=== PATIENT | male | born 1945 | race Two or more races ===

== ENCOUNTER 2019-11-26 14:27 | Inpatient (IN) | payer MEDICARE ==
[~2019-11-26] VITALS: Ht 152.4 cm; Wt 81.6 kg
[2019-11-26] MEDS ORDERED: ACETAMINOPHEN 650MG SUPP PR STA (14:52)
[2019-11-26] MEDS ORDERED: VANCOMYCIN 1 G PREMIX 200 ML IV ONE (15:00)
[2019-11-26] MEDS ORDERED: SODIUM CHLORIDE 0.9% 1000ML BAG (SEPSIS BOLUS) IV ONE (15:00)
[2019-11-26] MEDS ORDERED: PIPERACILLIN/TAZ 3.375G PREMIX 50 ML IV ONE (15:00)
[2019-11-26] MEDS ORDERED: ETOMIDATE 2MG/ML 10ML VIAL IV ONE (15:21)
[2019-11-26 15:25] LABS: BASOPHILS % 0.6 % (0.0-2.0); EOSINOPHILS % 0.1 % (0.0-5.0); HEMATOCRIT. 35.7 % (42.0-52.0); LYMPHOCYTES % 8.7 % (20.0-50.0); MEAN CORPUSCULAR HEMOGLOBIN 32.7 pg (28.0-32.0); MEAN CORPUSCULAR VOLUME 97.4 fL (80.0-94.0); MONOCYTES % 10.9 % (2.0-8.0); NEUTROPHILS % 79.7 % (40.0-76.0); PLATELET 161 x1000/uL (130-400); RED BLOOD CELL COUNT 3.66 mill/uL (4.7-6.1); RED CELL DISTRIBUTION WIDTH 15.9 % (11.6-14.6)
[2019-11-26 15:27] LABS: CHLORIDE 113 mEq/L (98-107)
[2019-11-26] MEDS ORDERED: PROPOFOL 10MG/ML 100ML 100 ML IV ONE (15:30)
[2019-11-26 15:56] LABS: CLARITY URINE CLOUDY (CLEAR); COLOR URINE DARK YELLOW (YELLOW); KETONES URINE 1+ (NEGATIVE); LEUKOCYTE ESTERASE URINE TRACE (NEGATIVE); NITRITE URINE NEGATIVE (NEGATIVE); OCCULT BLOOD URINE TRACE (NEGATIVE); PH URINE 5.5 (4.5-8.0); PROTEIN URINE 1+ (NEGATIVE); SPECIFIC GRAVITY URINE 1.032 (1.005-1.030)
[2019-11-26 16:27] LABS: BG BASE EXCESS -0.5 mmol/L (-2.0-2.0); BG CARBOXYHEMOGLOBIN 0.3 % (0.5-1.5); BG DEOXYHEMOGLOBIN 0.6 % (0.0-5.0); BG FRACTION INSPIRED OXYGEN 100; BG HCO3 ACT 24.2 mmol/L (22.0-26.0); BG METHEMOGLOBIN 0.2 % (0.0-1.5); BG OXYGEN SATURATION 99.4 % (92.0-98.5); BG OXYHEMOGLOBIN 98.9 % (94.0-97.0); BG PCO2 39.9 mmHg (35.0-45.0); BG PO2 391.6 mmHg (75.0-100.0); BG SAMPLE SITE RIGHT RADIAL; BG TIDAL VOLUME(mL) 500 mL; BG TOTAL HEMOGLOBIN 11.4 g/dL (12.0-18.0); BG VENT MODE VENT - A/C; BG VENT RATE 14 set
[2019-11-26] MEDS ORDERED: ONDANSETRON HCL 4MG/2ML INJ IV PRN (18:30)
[2019-11-26] MEDS ORDERED: ACETAMINOPHEN 325MG TABLET PO PRN (18:30)
[2019-11-26] MEDS ORDERED: PIPERACILLIN/TAZ 3.375G PREMIX 50 ML IV SCH ×2 (18:30→21:30)
[2019-11-26] MEDS ORDERED: MORPHINE SULFATE 2 MG/ML CPJ (NOT FOR IM USE) IV PRN (18:30)
[2019-11-26] MEDS ORDERED: LORAZEPAM 2MG/ML CPJ IV PRN (18:30)
[2019-11-26] MEDS: PANTOPRAZOLE SODIUM 40 MG/VIAL IV SCH (19:06)
[2019-11-26] MEDS ORDERED: ENOXAPARIN 40MG/0.4ML SYR SUBCUT SCH (21:00)
[2019-11-26] MEDS: DEXT 5%/0.45% NACL 1000ML 1,000 ML IV SCH (22:00)
[2019-11-26] MEDS ORDERED: VANCOMYCIN 1 G PREMIX 200 ML IV SCH (23:00)
[2019-11-27] VITALS (74 sets, daily range): BP systolic 104–168; BP diastolic 54–124
[2019-11-27] MEDS ORDERED: VANCOMYCIN 1 G PREMIX 200 ML IV SCH (01:00)
[2019-11-27] MEDS ORDERED: PROPOFOL 10MG/ML 100ML 100 ML IV PRN ×2 (01:15→20:15)
[2019-11-27] MEDS: DEXT 5%/0.45% NACL 1000ML 1,000 ML IV SCH (02:27)
[2019-11-27 02:34] LABS: BG CARBOXYHEMOGLOBIN 0.3 % (0.5-1.5); BG DEOXYHEMOGLOBIN 0.4 % (0.0-5.0); BG FRACTION INSPIRED OXYGEN 100; BG HCO3 ACT 26.2 mmol/L (22.0-26.0); BG METHEMOGLOBIN 0.4 % (0.0-1.5); BG OXYGEN SATURATION 99.6 % (92.0-98.5); BG OXYHEMOGLOBIN 98.9 % (94.0-97.0); BG PCO2 39.5 mmHg (35.0-45.0); BG PO2 437.6 mmHg (75.0-100.0); BG SAMPLE SITE RIGHT RADIAL; BG TIDAL VOLUME(mL) 500 mL; BG TOTAL HEMOGLOBIN 13.3 g/dL (12.0-18.0); BG VENT MODE VENT - A/C; BG VENT RATE 14 set
[2019-11-27] MEDS: PROPOFOL 10MG/ML 100ML 100 ML IV PRN ×3 (03:15→15:18)
[2019-11-27] MEDS ORDERED: DEXTROSE 50% WATER 50ML SYRINGE IV PRN (04:15)
[2019-11-27 05:23] LABS: BASOPHILS % 0.6 % (0.0-2.0); CHLORIDE 111 mEq/L (98-107); EOSINOPHILS % 0.4 % (0.0-5.0); HEMATOCRIT. 33.7 % (42.0-52.0); LYMPHOCYTES % 11.1 % (20.0-50.0); MEAN CORPUSCULAR HEMOGLOBIN 32.3 pg (28.0-32.0); MEAN CORPUSCULAR VOLUME 98.5 fL (80.0-94.0); MONOCYTES % 8.7 % (2.0-8.0); NEUTROPHILS % 79.2 % (40.0-76.0); PLATELET 138 x1000/uL (130-400); RED BLOOD CELL COUNT 3.42 mill/uL (4.7-6.1); RED CELL DISTRIBUTION WIDTH 15.8 % (11.6-14.6)
[2019-11-27] MEDS: PIPERACILLIN/TAZOBACTAM 3.375 G in DEXT 5% WATER 100 ML IV SCH ×3 (06:10→18:50)
[2019-11-27] MEDS: INSULIN LISPRO 100 UNITS/ML SUBCUT SCH ×3 (06:10→17:55)
[2019-11-27] MEDS: BLOOD SUGAR DIAGNOSTIC STRIP TEST SCH ×3 (06:11→16:56)
[2019-11-27 08:52] LABS: BG BASE EXCESS -1.7 mmol/L (-2.0-2.0); BG CARBOXYHEMOGLOBIN 0.3 % (0.5-1.5); BG DEOXYHEMOGLOBIN 1.8 % (0.0-5.0); BG HCO3 ACT 22.1 mmol/L (22.0-26.0); BG METHEMOGLOBIN 0.3 % (0.0-1.5); BG OXYGEN SATURATION 98.2 % (92.0-98.5); BG OXYHEMOGLOBIN 97.6 % (94.0-97.0); BG PCO2 34.1 mmHg (35.0-45.0); BG PO2 120.2 mmHg (75.0-100.0); BG SAMPLE SITE RIGHT RADIAL; BG TIDAL VOLUME(mL) 500 mL; BG TOTAL HEMOGLOBIN 10.8 g/dL (12.0-18.0); BG VENT MODE VENT - A/C; BG VENT RATE 14 set
[2019-11-27] MEDS ORDERED: LIDOCAINE HCL 1% 20ML VIAL (Pyxis) INJ ONE (09:05)
[2019-11-27] MEDS: PANTOPRAZOLE SODIUM 40 MG/VIAL IV SCH (09:34)
[2019-11-27] MEDS: NICARDIPINE 100 MG in SODIUM CHLORIDE 0.9% 60 ML IV PRN (20:45)
[2019-11-27] MEDS: VANCOMYCIN 750 MG PREMIX 150 ML IV SCH (20:58)
[2019-11-27] MEDS: LEVETIRACETAM 500MG PREMIX 100 ML IV SCH (20:58)
[2019-11-27] MEDS: MORPHINE SULFATE 4 MG/ML CPJ (NOT FOR IM USE) IV PRN (21:14)
[2019-11-28] VITALS (97 sets, daily range): BP systolic 105–153; BP diastolic 55–115
[2019-11-28] MEDS: PIPERACILLIN/TAZOBACTAM 3.375 G in DEXT 5% WATER 100 ML IV SCH ×4 (00:33→17:07)
[2019-11-28] MEDS: DEXT 5%/0.45% NACL 1000ML 1,000 ML IV SCH ×2 (00:34→20:24)
[2019-11-28] MEDS: BLOOD SUGAR DIAGNOSTIC STRIP TEST SCH ×4 (00:50→17:11)
[2019-11-28] MEDS: INSULIN LISPRO 100 UNITS/ML SUBCUT SCH ×4 (00:50→17:09)
[2019-11-28] MEDS: MORPHINE SULFATE 4 MG/ML CPJ (NOT FOR IM USE) IV PRN ×4 (01:00→13:40)
[2019-11-28] MEDS: PANTOPRAZOLE SODIUM 40 MG/VIAL IV SCH (08:18)
[2019-11-28] MEDS: LEVETIRACETAM 500MG PREMIX 100 ML IV SCH ×2 (08:19→22:04)
[2019-11-28] MEDS: VANCOMYCIN 750 MG PREMIX 150 ML IV SCH ×2 (08:19→22:05)
[2019-11-28 09:00] LABS: BG BASE EXCESS 2.4 mmol/L (-2.0-2.0); BG CARBOXYHEMOGLOBIN 0.2 % (0.5-1.5); BG DEOXYHEMOGLOBIN 1.6 % (0.0-5.0); BG FRACTION INSPIRED OXYGEN 40; BG HCO3 ACT 25.4 mmol/L (22.0-26.0); BG METHEMOGLOBIN 0.6 % (0.0-1.5); BG OXYGEN SATURATION 98.4 % (92.0-98.5); BG OXYHEMOGLOBIN 97.6 % (94.0-97.0); BG PCO2 33.2 mmHg (35.0-45.0); BG PH 7.502 (7.350-7.450); BG SAMPLE SITE RIGHT RADIAL; BG TIDAL VOLUME(mL) 500 mL; BG TOTAL HEMOGLOBIN 9.7 g/dL (12.0-18.0); BG VENT MODE VENT - A/C; BG VENT RATE 14 set
[2019-11-28 13:41] LABS: BG BASE EXCESS 3.3 mmol/L (-2.0-2.0); BG CARBOXYHEMOGLOBIN 0.3 % (0.5-1.5); BG DEOXYHEMOGLOBIN 2.2 % (0.0-5.0); BG FRACTION INSPIRED OXYGEN 40; BG HCO3 ACT 26.8 mmol/L (22.0-26.0); BG METHEMOGLOBIN 0.2 % (0.0-1.5); BG OXYGEN SATURATION 97.8 % (92.0-98.5); BG OXYHEMOGLOBIN 97.3 % (94.0-97.0); BG PCO2 36.7 mmHg (35.0-45.0); BG PH 7.482 (7.350-7.450); BG PO2 108.8 mmHg (75.0-100.0); BG PRESSURE SUPPORT 8; BG SAMPLE SITE RIGHT RADIAL; BG TOTAL HEMOGLOBIN 9.7 g/dL (12.0-18.0); BG VENT MODE VENT - CPAP
[2019-11-28] MEDS: NICARDIPINE 100 MG in SODIUM CHLORIDE 0.9% 60 ML IV PRN (13:44)
[2019-11-29] VITALS (54 sets, daily range): BP systolic 103–166; BP diastolic 44–116
[2019-11-29] MEDS: PIPERACILLIN/TAZOBACTAM 3.375 G in DEXT 5% WATER 100 ML IV SCH ×4 (01:23→18:00)
[2019-11-29] MEDS: INSULIN LISPRO 100 UNITS/ML SUBCUT SCH ×4 (01:23→18:13)
[2019-11-29] MEDS: MORPHINE SULFATE 4 MG/ML CPJ (NOT FOR IM USE) IV PRN ×3 (02:58→03:34)
[2019-11-29 05:58] LABS: CHLORIDE 110 mEq/L (98-107)
[2019-11-29] MEDS: BLOOD SUGAR DIAGNOSTIC STRIP TEST SCH ×4 (06:42→18:00)
[2019-11-29] MEDS: PANTOPRAZOLE SODIUM 40 MG/VIAL IV SCH (08:26)
[2019-11-29] MEDS: VANCOMYCIN 750 MG PREMIX 150 ML IV SCH (08:26)
[2019-11-29] MEDS: LEVETIRACETAM 500MG PREMIX 100 ML IV SCH ×2 (08:26→21:16)
[2019-11-29] MEDS: NICARDIPINE 100 MG in SODIUM CHLORIDE 0.9% 60 ML IV PRN (08:27)
[2019-11-29] MEDS ORDERED: POTASSIUM CHLORIDE INJ 40 MEQ in DEXT 5% WATER 250 ML IV SCH (12:00)
[2019-11-29] MEDS: DEXT 5%/0.45% NACL 1000ML 1,000 ML IV SCH (12:13)
[2019-11-29] MEDS: VANCOMYCIN 1 G PREMIX 200 ML IV SCH (20:18)
[2019-11-30] VITALS (12 sets, daily range): BP systolic 135–158; BP diastolic 71–97
[2019-11-30] MEDS: BLOOD SUGAR DIAGNOSTIC STRIP TEST SCH ×4 (00:54→18:31)
[2019-11-30] MEDS: PIPERACILLIN/TAZOBACTAM 3.375 G in DEXT 5% WATER 100 ML IV SCH ×4 (00:58→18:34)
[2019-11-30] MEDS: DEXT 5%/0.45% NACL 1000ML 1,000 ML IV SCH ×2 (00:59→21:29)
[2019-11-30] MEDS: INSULIN LISPRO 100 UNITS/ML SUBCUT SCH ×5 (01:00→18:00)
[2019-11-30 07:24] LABS: CHLORIDE 105 mEq/L (98-107)
[2019-11-30] MEDS: VANCOMYCIN 1 G PREMIX 200 ML IV SCH ×2 (07:49→20:14)
[2019-11-30] MEDS: LEVETIRACETAM 500MG PREMIX 100 ML IV SCH ×2 (10:11→21:29)
[2019-11-30] MEDS ORDERED: POTASSIUM CHLORIDE INJ 40 MEQ in DEXT 5% WATER 250 ML IV SCH (13:00)
[2019-11-30] MEDS: PANTOPRAZOLE SODIUM 40 MG/VIAL IV SCH (17:15)
[2019-11-30] MEDS: MORPHINE SULFATE 4 MG/ML CPJ (NOT FOR IM USE) IV PRN (22:50)
[2019-12-01] VITALS (12 sets, daily range): BP systolic 121–179; BP diastolic 53–89
[2019-12-01] MEDS: INSULIN LISPRO 100 UNITS/ML SUBCUT SCH ×4 (00:47→17:28)
[2019-12-01] MEDS: PIPERACILLIN/TAZOBACTAM 3.375 G in DEXT 5% WATER 100 ML IV SCH ×4 (00:47→17:26)
[2019-12-01] MEDS: BLOOD SUGAR DIAGNOSTIC STRIP TEST SCH ×5 (00:47→23:58)
[2019-12-01 06:40] LABS: BASOPHILS % 1.2 % (0.0-2.0); EOSINOPHILS % 3.5 % (0.0-5.0); HEMATOCRIT. 38.2 % (42.0-52.0); HEMOGLOBIN. 12.4 g/dL (14.0-18.0); LYMPHOCYTES % 15.7 % (20.0-50.0); MEAN CORPUSCULAR HEMOGLOBIN 31.3 pg (28.0-32.0); MEAN CORPUSCULAR VOLUME 96.3 fL (80.0-94.0); MEAN PLATELET VOLUME 9.4 fl (7.4-10.4); MONOCYTES % 13.3 % (2.0-8.0); NEUTROPHILS % 66.3 % (40.0-76.0); PLATELET 219 x1000/uL (130-400); RED BLOOD CELL COUNT 3.96 mill/uL (4.7-6.1); RED CELL DISTRIBUTION WIDTH 14.9 % (11.6-14.6)
[2019-12-01 07:00] LABS: CHLORIDE 107 mEq/L (98-107)
[2019-12-01] MEDS: PANTOPRAZOLE SODIUM 40 MG/VIAL IV SCH (09:32)
[2019-12-01] MEDS: LEVETIRACETAM 500MG PREMIX 100 ML IV SCH ×2 (09:40→20:21)
[2019-12-01] MEDS: VANCOMYCIN 1 G PREMIX 200 ML IV SCH ×2 (10:21→20:21)
[2019-12-01] MEDS: POTASSIUM CHLORIDE 20MEQ TABLET SR PO SCH (13:00)
[2019-12-01] MEDS: DEXT 5%/0.45% NACL 1000ML 1,000 ML IV SCH (15:04)
[2019-12-02] VITALS (12 sets, daily range): BP systolic 142–159; BP diastolic 63–85
[2019-12-02] MEDS: INSULIN LISPRO 100 UNITS/ML SUBCUT SCH ×5 (00:02→23:57)
[2019-12-02] MEDS: DEXT 5%/0.45% NACL 1000ML 1,000 ML IV SCH (05:57)
[2019-12-02] MEDS: BLOOD SUGAR DIAGNOSTIC STRIP TEST SCH ×3 (05:57→17:08)
[2019-12-02] MEDS: PANTOPRAZOLE SODIUM 40 MG/VIAL IV SCH (09:05)
[2019-12-02] MEDS: POTASSIUM CHLORIDE 20MEQ TABLET SR PO SCH (09:05)
[2019-12-02] MEDS: LEVETIRACETAM 500MG PREMIX 100 ML IV SCH ×2 (09:06→20:45)
[2019-12-02 16:39] LABS: CHLORIDE 111 mEq/L (98-107)
[2019-12-02] MEDS ORDERED: POTASSIUM CHLORIDE INJ 40 MEQ in DEXT 5% WATER 250 ML IV NR (20:00)
[2019-12-03] VITALS (13 sets, daily range): BP systolic 137–161; BP diastolic 60–88
[2019-12-03] MEDS: BLOOD SUGAR DIAGNOSTIC STRIP TEST SCH ×5 (00:37→23:52)
[2019-12-03] MEDS: DEXT 5%/0.45% NACL 1000ML 1,000 ML IV SCH (04:36)
[2019-12-03] MEDS: INSULIN LISPRO 100 UNITS/ML SUBCUT SCH ×4 (05:32→23:52)
[2019-12-03] MEDS: POTASSIUM CHLORIDE 20MEQ TABLET SR PO SCH (08:28)
[2019-12-03] MEDS: LEVETIRACETAM 500MG PREMIX 100 ML IV SCH ×2 (08:28→20:19)
[2019-12-03] MEDS: PANTOPRAZOLE SODIUM 40 MG/VIAL IV SCH (08:28)
[2019-12-03 16:49] LABS: CHLORIDE 112 mEq/L (98-107)
[2019-12-03] MEDS: AMLODIPINE 5MG TABLET PO SCH (20:20)
[2019-12-04] VITALS (11 sets, daily range): BP systolic 124–151; BP diastolic 50–73
[2019-12-04] MEDS: BLOOD SUGAR DIAGNOSTIC STRIP TEST SCH ×4 (05:20→21:43)
[2019-12-04] MEDS: INSULIN LISPRO 100 UNITS/ML SUBCUT SCH ×4 (05:20→21:43)
[2019-12-04] MEDS: PANTOPRAZOLE SODIUM 40 MG/VIAL IV SCH (08:23)
[2019-12-04] MEDS: AMLODIPINE 5MG TABLET PO SCH ×2 (08:23→21:00)
[2019-12-04] MEDS: LEVETIRACETAM 500MG PREMIX 100 ML IV SCH ×2 (08:24→21:39)
[2019-12-04] MEDS: POTASSIUM CHLORIDE 20MEQ TABLET SR PO SCH (08:24)
[2019-12-05] VITALS: BP_SYST 145; BP_SYST 156; BP_DIAS 71; BP_DIAS 73
[2019-12-05 04:00] VITALS: BP 162/73
[2019-12-05] MEDS: INSULIN LISPRO 100 UNITS/ML SUBCUT SCH ×4 (06:22→20:59)
[2019-12-05] MEDS: BLOOD SUGAR DIAGNOSTIC STRIP TEST SCH ×4 (06:22→20:59)
[2019-12-05 08:00] VITALS: BP 134/63
[2019-12-05] MEDS: AMLODIPINE 5MG TABLET PO SCH ×2 (09:48→20:51)
[2019-12-05] MEDS: PANTOPRAZOLE SODIUM 40 MG/VIAL IV SCH (09:48)
[2019-12-05] MEDS: POTASSIUM CHLORIDE 20MEQ TABLET SR PO SCH (09:48)
[2019-12-05 12:00] VITALS: BP 147/70
[2019-12-05] MEDS: LEVETIRACETAM 500MG PREMIX 100 ML IV SCH ×2 (12:15→20:52)
[2019-12-05 16:00] VITALS: BP 137/68
[2019-12-05 20:00] VITALS: BP 125/77
[2019-12-06] VITALS: BP_SYST 155; BP_DIAS 67; BP_DIAS 74
[2019-12-06 04:00] VITALS: BP 153/153
[2019-12-06] MEDS: BLOOD SUGAR DIAGNOSTIC STRIP TEST SCH ×4 (07:19→21:56)
[2019-12-06] MEDS: INSULIN LISPRO 100 UNITS/ML SUBCUT SCH ×4 (07:46→22:23)
[2019-12-06 08:00] VITALS: BP 156/71
[2019-12-06] MEDS: POTASSIUM CHLORIDE 20MEQ TABLET SR PO SCH (08:52)
[2019-12-06] MEDS: LEVETIRACETAM 500MG PREMIX 100 ML IV SCH ×2 (08:52→21:56)
[2019-12-06] MEDS: PANTOPRAZOLE SODIUM 40 MG/VIAL IV SCH (08:52)
[2019-12-06] MEDS: AMLODIPINE 5MG TABLET PO SCH ×2 (08:53→21:56)
[2019-12-06 11:51] LABS: VITAMIN B12 SERUM 698 pg/mL (211-911)
[2019-12-06 12:00] VITALS: BP 126/55
[2019-12-06 16:00] VITALS: BP 145/69
[2019-12-06] MEDS ORDERED: LORAZEPAM 2MG/ML CPJ IV PRN (19:45)
[2019-12-06 20:00] VITALS: BP 140/71
[2019-12-07 04:00] VITALS: BP 153/67
[2019-12-07] MEDS: BLOOD SUGAR DIAGNOSTIC STRIP TEST SCH ×4 (06:10→20:42)
[2019-12-07] MEDS: INSULIN LISPRO 100 UNITS/ML SUBCUT SCH ×4 (06:10→20:58)
[2019-12-07 08:00] VITALS: BP 140/66
[2019-12-07] MEDS: POTASSIUM CHLORIDE 20MEQ TABLET SR PO SCH (08:16)
[2019-12-07] MEDS: LEVETIRACETAM 500MG PREMIX 100 ML IV SCH ×2 (08:16→20:42)
[2019-12-07] MEDS: PANTOPRAZOLE SODIUM 40 MG/VIAL IV SCH (08:16)
[2019-12-07] MEDS: AMLODIPINE 5MG TABLET PO SCH ×2 (08:18→20:42)
[2019-12-07 12:00] VITALS: BP 140/66
[2019-12-07 16:00] VITALS: BP 156/65
[2019-12-07 20:00] VITALS: BP 103/75
[2019-12-07] MEDS: QUETIAPINE FUMARATE 25MG TABLET PO SCH (20:42)
[2019-12-08] VITALS: BP 147/80
[2019-12-08] MEDS: INSULIN LISPRO 100 UNITS/ML SUBCUT SCH ×4 (07:50→20:50)
[2019-12-08] MEDS: BLOOD SUGAR DIAGNOSTIC STRIP TEST SCH ×4 (07:51→20:50)
[2019-12-08 08:00] VITALS: BP 172/74
[2019-12-08] MEDS: POTASSIUM CHLORIDE 20MEQ TABLET SR PO SCH (09:54)
[2019-12-08] MEDS: LEVETIRACETAM 500MG PREMIX 100 ML IV SCH (09:55)
[2019-12-08] MEDS: QUETIAPINE FUMARATE 25MG TABLET PO SCH (09:55)
[2019-12-08] MEDS: PANTOPRAZOLE SODIUM 40 MG/VIAL IV SCH (09:57)
[2019-12-08] MEDS: AMLODIPINE 5MG TABLET PO SCH ×2 (10:48→20:49)
[2019-12-08 12:00] VITALS: BP 115/61
[2019-12-08 16:00] VITALS: BP 165/73
[2019-12-08 20:00] VITALS: BP 123/63
[2019-12-08] MEDS: LEVETIRACETAM 250MG TABLET PO SCH (20:49)
[2019-12-08] MEDS: QUETIAPINE FUMARATE 50MG TABLET PO SCH (20:50)
[2019-12-09] VITALS: BP 135/73
[2019-12-09 04:00] VITALS: BP 142/71
[2019-12-09] MEDS: BLOOD SUGAR DIAGNOSTIC STRIP TEST SCH ×4 (06:23→21:34)
[2019-12-09] MEDS: INSULIN LISPRO 100 UNITS/ML SUBCUT SCH ×4 (07:50→21:00)
[2019-12-09 08:00] VITALS: BP 133/73
[2019-12-09] MEDS: QUETIAPINE FUMARATE 50MG TABLET PO SCH ×2 (10:02→21:53)
[2019-12-09] MEDS: POTASSIUM CHLORIDE 20MEQ TABLET SR PO SCH (10:02)
[2019-12-09] MEDS: PANTOPRAZOLE SODIUM 40 MG/VIAL IV SCH (10:02)
[2019-12-09] MEDS: LEVETIRACETAM 250MG TABLET PO SCH ×2 (10:02→21:53)
[2019-12-09] MEDS: AMLODIPINE 5MG TABLET PO SCH ×2 (10:02→21:53)
[2019-12-09 16:00] VITALS: BP 137/73
[2019-12-09 20:00] VITALS: BP 117/61
[2019-12-10] VITALS: BP 149/85
[2019-12-10 04:00] VITALS: BP 133/84
[2019-12-10] MEDS: BLOOD SUGAR DIAGNOSTIC STRIP TEST SCH ×4 (06:24→20:52)
[2019-12-10] MEDS: INSULIN LISPRO 100 UNITS/ML SUBCUT SCH ×4 (07:46→20:52)
[2019-12-10 08:00] VITALS: BP 131/73
[2019-12-10] MEDS: LEVETIRACETAM 250MG TABLET PO SCH ×2 (08:48→20:31)
[2019-12-10] MEDS: POTASSIUM CHLORIDE 20MEQ TABLET SR PO SCH (08:48)
[2019-12-10] MEDS: PANTOPRAZOLE SODIUM 40 MG/VIAL IV SCH (08:48)
[2019-12-10] MEDS: QUETIAPINE FUMARATE 50MG TABLET PO SCH ×2 (08:48→20:31)
[2019-12-10] MEDS: AMLODIPINE 5MG TABLET PO SCH ×2 (08:48→20:31)
[2019-12-11] VITALS: BP 124/88
[2019-12-11] MEDS: BLOOD SUGAR DIAGNOSTIC STRIP TEST SCH ×4 (06:45→21:00)
[2019-12-11] MEDS: INSULIN LISPRO 100 UNITS/ML SUBCUT SCH ×4 (07:50→21:00)
[2019-12-11] MEDS: LEVETIRACETAM 250MG TABLET PO SCH ×2 (09:00→21:16)
[2019-12-11] MEDS: PANTOPRAZOLE SODIUM 40 MG/VIAL IV SCH (09:00)
[2019-12-11] MEDS: QUETIAPINE FUMARATE 50MG TABLET PO SCH ×2 (10:16→21:16)
[2019-12-11] MEDS: POTASSIUM CHLORIDE 20MEQ TABLET SR PO SCH (10:16)
[2019-12-11] MEDS: AMLODIPINE 5MG TABLET PO SCH ×2 (10:17→21:17)
[2019-12-11 12:00] VITALS: BP 157/75
[2019-12-11] MEDS: HALOPERIDOL LACTATE 5MG/ML VIAL IM PRN ×2 (15:02→23:27)
[2019-12-11 16:00] VITALS: BP 136/74
[2019-12-11 20:00] VITALS: BP 144/69
[2019-12-12] VITALS (7 sets, daily range): BP systolic 120–149; BP diastolic 69–80
[2019-12-12] MEDS: BLOOD SUGAR DIAGNOSTIC STRIP TEST SCH ×4 (06:27→20:55)
[2019-12-12] MEDS: INSULIN LISPRO 100 UNITS/ML SUBCUT SCH ×4 (06:27→21:08)
[2019-12-12] MEDS: QUETIAPINE FUMARATE 50MG TABLET PO SCH (08:27)
[2019-12-12] MEDS: LEVETIRACETAM 250MG TABLET PO SCH ×2 (08:27→20:50)
[2019-12-12] MEDS: AMLODIPINE 5MG TABLET PO SCH ×2 (08:27→20:50)
[2019-12-12] MEDS: POTASSIUM CHLORIDE 20MEQ TABLET SR PO SCH (08:28)
[2019-12-12] MEDS: PANTOPRAZOLE SODIUM 40 MG/VIAL IV SCH (08:28)
[2019-12-12] MEDS: HALOPERIDOL LACTATE 5MG/ML VIAL IM PRN ×2 (08:28→16:45)
[2019-12-12] MEDS: QUETIAPINE FUMARATE 25MG TABLET PO SCH (21:07)
[2019-12-13] MEDS: HALOPERIDOL LACTATE 5MG/ML VIAL IM PRN ×2 (03:01→12:55)
[2019-12-13] MEDS: INSULIN LISPRO 100 UNITS/ML SUBCUT SCH ×4 (07:19→21:00)
[2019-12-13] MEDS: BLOOD SUGAR DIAGNOSTIC STRIP TEST SCH ×4 (07:19→21:00)
[2019-12-13 08:00] VITALS: BP 128/59
[2019-12-13] MEDS: PANTOPRAZOLE SODIUM 40 MG/VIAL IV SCH (09:00)
[2019-12-13] MEDS: POTASSIUM CHLORIDE 20MEQ TABLET SR PO SCH (09:15)
[2019-12-13] MEDS: LEVETIRACETAM 250MG TABLET PO SCH ×2 (09:15→20:33)
[2019-12-13] MEDS: QUETIAPINE FUMARATE 25MG TABLET PO SCH ×2 (09:15→20:33)
[2019-12-13] MEDS: AMLODIPINE 5MG TABLET PO SCH ×2 (09:24→20:33)
[2019-12-13 12:00] VITALS: BP 124/58
[2019-12-13 16:00] VITALS: BP 137/74
[2019-12-13 20:00] VITALS: BP 128/71
[2019-12-14] VITALS: BP 157/60
[2019-12-14 04:00] VITALS: BP 155/73
[2019-12-14] MEDS: BLOOD SUGAR DIAGNOSTIC STRIP TEST SCH ×4 (06:21→20:34)
[2019-12-14] MEDS: INSULIN LISPRO 100 UNITS/ML SUBCUT SCH ×4 (07:50→20:34)
[2019-12-14 08:00] VITALS: BP 120/59
[2019-12-14] MEDS: PANTOPRAZOLE SODIUM 40 MG/VIAL IV SCH (08:43)
[2019-12-14] MEDS: LEVETIRACETAM 250MG TABLET PO SCH ×2 (08:43→20:20)
[2019-12-14] MEDS: QUETIAPINE FUMARATE 25MG TABLET PO SCH ×2 (08:44→20:21)
[2019-12-14] MEDS: POTASSIUM CHLORIDE 20MEQ TABLET SR PO SCH (08:44)
[2019-12-14] MEDS: HALOPERIDOL LACTATE 5MG/ML VIAL IM PRN (08:45)
[2019-12-14] MEDS: AMLODIPINE 5MG TABLET PO SCH ×2 (08:45→20:20)
[2019-12-14 16:00] VITALS: BP 136/87
[2019-12-14 20:00] VITALS: BP 126/67
[2019-12-15] VITALS: BP 115/63
[2019-12-15] MEDS: HALOPERIDOL LACTATE 5MG/ML VIAL IM PRN ×2 (00:39→13:17)
[2019-12-15 04:00] VITALS: BP 150/79
[2019-12-15] MEDS: INSULIN LISPRO 100 UNITS/ML SUBCUT SCH ×4 (07:50→21:00)
[2019-12-15 08:00] VITALS: BP 156/84
[2019-12-15] MEDS: BLOOD SUGAR DIAGNOSTIC STRIP TEST SCH ×4 (08:02→21:00)
[2019-12-15] MEDS: PANTOPRAZOLE SODIUM 40 MG/VIAL IV SCH (09:00)
[2019-12-15] MEDS: QUETIAPINE FUMARATE 25MG TABLET PO SCH ×2 (09:28→23:32)
[2019-12-15] MEDS: POTASSIUM CHLORIDE 20MEQ TABLET SR PO SCH (09:28)
[2019-12-15] MEDS: AMLODIPINE 5MG TABLET PO SCH ×2 (09:28→23:32)
[2019-12-15] MEDS: LEVETIRACETAM 250MG TABLET PO SCH ×2 (09:30→23:32)
[2019-12-15 12:00] VITALS: BP 134/73
[2019-12-15 16:00] VITALS: BP 153/82
[2019-12-15 20:00] VITALS: BP 152/90
[2019-12-16 04:00] VITALS: BP 115/85
[2019-12-16] MEDS: BLOOD SUGAR DIAGNOSTIC STRIP TEST SCH ×4 (07:20→20:40)
[2019-12-16] MEDS: INSULIN LISPRO 100 UNITS/ML SUBCUT SCH ×3 (07:50→21:00)
[2019-12-16] MEDS: LEVETIRACETAM 250MG TABLET PO SCH ×3 (09:00→20:40)
[2019-12-16] MEDS: AMLODIPINE 5MG TABLET PO SCH ×2 (09:00→20:40)
[2019-12-16] MEDS: POTASSIUM CHLORIDE 20MEQ TABLET SR PO SCH (09:00)
[2019-12-16] MEDS: PANTOPRAZOLE SODIUM 40 MG/VIAL IV SCH (09:00)
[2019-12-16] MEDS: HALOPERIDOL LACTATE 5MG/ML VIAL IM PRN (10:38)
[2019-12-16] MEDS: QUETIAPINE FUMARATE 25MG TABLET PO SCH ×2 (11:05→20:40)
[2019-12-16 12:00] VITALS: BP 124/70
[2019-12-16 16:00] VITALS: BP 126/80
[2019-12-16 20:00] VITALS: BP 151/89
[2019-12-17] MEDS: HALOPERIDOL LACTATE 5MG/ML VIAL IM PRN ×3 (00:27→21:14)
[2019-12-17] MEDS: BLOOD SUGAR DIAGNOSTIC STRIP TEST SCH ×4 (07:41→21:00)
[2019-12-17] MEDS: INSULIN LISPRO 100 UNITS/ML SUBCUT SCH ×4 (07:50→21:00)
[2019-12-17] MEDS: PANTOPRAZOLE SODIUM 40 MG/VIAL IV SCH (09:00)
[2019-12-17] MEDS: AMLODIPINE 5MG TABLET PO SCH ×2 (09:00→21:00)
[2019-12-17] MEDS: POTASSIUM CHLORIDE 20MEQ TABLET SR PO SCH (10:53)
[2019-12-17] MEDS: LEVETIRACETAM 250MG TABLET PO SCH ×2 (10:54→21:13)
[2019-12-17] MEDS: ZINC SULFATE 220 MG ( 50 ) CAPSULE PO SCH (10:54)
[2019-12-17] MEDS: ASCORBIC ACID 500 MG TABLET PO SCH (10:54)
[2019-12-17] MEDS: QUETIAPINE FUMARATE 25MG TABLET PO SCH (10:54)
[2019-12-17 12:00] VITALS: BP 146/67
[2019-12-17 20:00] VITALS: BP 126/71
[2019-12-17] MEDS: QUETIAPINE FUMARATE 50MG TABLET PO SCH (21:00)
[2019-12-18 04:00] VITALS: BP 130/73
[2019-12-18] MEDS: BLOOD SUGAR DIAGNOSTIC STRIP TEST SCH ×4 (05:55→20:29)
[2019-12-18] MEDS: INSULIN LISPRO 100 UNITS/ML SUBCUT SCH ×4 (05:55→21:07)
[2019-12-18] MEDS: AMLODIPINE 5MG TABLET PO SCH ×2 (08:41→20:59)
[2019-12-18] MEDS: ZINC SULFATE 220 MG ( 50 ) CAPSULE PO SCH (08:41)
[2019-12-18] MEDS: ASCORBIC ACID 500 MG TABLET PO SCH (08:41)
[2019-12-18] MEDS: LEVETIRACETAM 250MG TABLET PO SCH ×2 (08:41→20:59)
[2019-12-18] MEDS: POTASSIUM CHLORIDE 20MEQ TABLET SR PO SCH (08:41)
[2019-12-18] MEDS: QUETIAPINE FUMARATE 50MG TABLET PO SCH ×2 (08:42→21:07)
[2019-12-18] MEDS: PANTOPRAZOLE SODIUM 40 MG/VIAL IV SCH (08:42)
[2019-12-18 20:00] VITALS: BP 146/83
[2019-12-18] MEDS: CLONAZEPAM 0.5MG TABLET PO SCH ×2 (22:00→23:16)
[2019-12-19] MEDS: CLONAZEPAM 0.5MG TABLET PO SCH ×3 (06:00→21:44)
[2019-12-19] MEDS: BLOOD SUGAR DIAGNOSTIC STRIP TEST SCH ×4 (06:42→20:44)
[2019-12-19] MEDS: INSULIN LISPRO 100 UNITS/ML SUBCUT SCH ×4 (07:50→20:46)
[2019-12-19 08:00] VITALS: BP 104/75
[2019-12-19] MEDS: PANTOPRAZOLE SODIUM 40 MG/VIAL IV SCH (09:00)
[2019-12-19] MEDS: ASCORBIC ACID 500 MG TABLET PO SCH (09:37)
[2019-12-19] MEDS: LEVETIRACETAM 250MG TABLET PO SCH ×2 (09:37→20:38)
[2019-12-19] MEDS: POTASSIUM CHLORIDE 20MEQ TABLET SR PO SCH (09:37)
[2019-12-19] MEDS: AMLODIPINE 5MG TABLET PO SCH ×2 (09:37→20:39)
[2019-12-19] MEDS: QUETIAPINE FUMARATE 50MG TABLET PO SCH (09:38)
[2019-12-19] MEDS: ZINC SULFATE 220 MG ( 50 ) CAPSULE PO SCH (09:39)
[2019-12-19 12:00] VITALS: BP 100/76
[2019-12-19] MEDS: HALOPERIDOL LACTATE 5MG/ML VIAL IM PRN (15:01)
[2019-12-19 20:00] VITALS: BP 153/92
[2019-12-19] MEDS: RISPERIDONE 1MG TABLET PO SCH (20:39)
[2019-12-20] VITALS: BP 150/85
[2019-12-20] MEDS: CLONAZEPAM 0.5MG TABLET PO SCH ×3 (07:21→21:00)
[2019-12-20] MEDS: BLOOD SUGAR DIAGNOSTIC STRIP TEST SCH ×4 (07:21→20:43)
[2019-12-20] MEDS: INSULIN LISPRO 100 UNITS/ML SUBCUT SCH ×4 (07:50→21:00)
[2019-12-20 08:00] VITALS: BP 145/78
[2019-12-20] MEDS: LEVETIRACETAM 250MG TABLET PO SCH ×2 (09:00→20:42)
[2019-12-20] MEDS: PANTOPRAZOLE SODIUM 40 MG/VIAL IV SCH (09:00)
[2019-12-20] MEDS: ASCORBIC ACID 500 MG TABLET PO SCH (09:01)
[2019-12-20] MEDS: ZINC SULFATE 220 MG ( 50 ) CAPSULE PO SCH (09:02)
[2019-12-20] MEDS: POTASSIUM CHLORIDE 20MEQ TABLET SR PO SCH (09:02)
[2019-12-20] MEDS: AMLODIPINE 5MG TABLET PO SCH ×2 (09:02→20:42)
[2019-12-20] MEDS: RISPERIDONE 1MG TABLET PO SCH ×2 (09:02→20:42)
[2019-12-20 12:00] VITALS: BP 149/80
[2019-12-20 16:00] VITALS: BP 130/60
[2019-12-20 20:00] VITALS: BP 132/78
[2019-12-20] MEDS: HALOPERIDOL LACTATE 5MG/ML VIAL IM PRN (23:41)
[2019-12-21] VITALS: BP 150/80
[2019-12-21 04:00] VITALS: BP 152/85
[2019-12-21] MEDS: CLONAZEPAM 0.5MG TABLET PO SCH ×2 (05:20→13:33)
[2019-12-21] MEDS: HALOPERIDOL LACTATE 5MG/ML VIAL IM PRN (05:21)
[2019-12-21] MEDS: BLOOD SUGAR DIAGNOSTIC STRIP TEST SCH ×2 (07:30→12:20)
[2019-12-21 08:00] VITALS: BP 155/69
[2019-12-21] MEDS: PANTOPRAZOLE SODIUM 40 MG/VIAL IV SCH (09:00)
[2019-12-21] MEDS: LEVETIRACETAM 250MG TABLET PO SCH (09:19)
[2019-12-21] MEDS: POTASSIUM CHLORIDE 20MEQ TABLET SR PO SCH (09:20)
[2019-12-21] MEDS: ASCORBIC ACID 500 MG TABLET PO SCH (09:20)
[2019-12-21] MEDS: AMLODIPINE 5MG TABLET PO SCH (09:21)
[2019-12-21] MEDS: RISPERIDONE 1MG TABLET PO SCH (09:21)
[2019-12-21] MEDS: ZINC SULFATE 220 MG ( 50 ) CAPSULE PO SCH (09:21)
[2019-12-21] MEDS: INSULIN LISPRO 100 UNITS/ML SUBCUT SCH ×2 (09:28→13:34)
[2019-12-21 12:00] VITALS: BP 145/82
[2019-12-21 15:31] VITALS: BP 145/82
== END 2019-12-21 16:15 | DRG 208 ==
LOC: ER 14:27 → EDBEDREQ 14:44 → MICUSO 17:05 → EDBEDREQSVC 17:51 → EDBEDREQ 17:51 → EDBEDREQTM 17:58 → MICUSO 23:43 → 5EST 11-29 13:35 → 6EST 12-05 01:00
PROVIDERS: ADMIT Hospitalist; ATTEND Hospitalist
PROC: 5A1945Z Respiratory Ventilation, 24-96 Consecutive Hours (ICD-10-PCS; principal; 2019-11-26)
PROC: 4A00X4Z Measurement of Central Nervous Electrical Activity, External Approach (ICD-10-PCS; 2019-11-26)
PROC: 0BH17EZ Insertion of Endotracheal Airway into Trachea, Via Natural or Artificial Opening (ICD-10-PCS; 2019-11-26)
PROC: 02H633Z Insertion of Infusion Device into Right Atrium, Percutaneous Approach (ICD-10-PCS; 2019-11-27)
PROC: B548ZZA Ultrasonography of Superior Vena Cava, Guidance (ICD-10-PCS; 2019-11-27)
DX: J96.01 Acute respiratory failure with hypoxia (principal); E43 Unspecified severe protein-calorie malnutrition; I62.00 Nontraumatic subdural hemorrhage, unspecified; S02.0XXA Fracture of vault of skull, initial encounter for closed fracture; G93.40 Encephalopathy, unspecified; J98.11 Atelectasis; E11.9 Type 2 diabetes mellitus without complications; G93.89 Other specified disorders of brain; I25.10 Atherosclerotic heart disease of native coronary artery without angina pectoris; Z51.5 Encounter for palliative care; Z20.828 Contact with and (suspected) exposure to other viral communicable diseases; I10 Essential (primary) hypertension; S90.822A Blister (nonthermal), left foot, initial encounter; W18.39XA Other fall on same level, initial encounter; Y93.89 Activity, other specified; Z95.5 Presence of coronary angioplasty implant and graft; Z68.35 Body mass index [BMI] 35.0-35.9, adult; Y92.129 Unspecified place in nursing home as the place of occurrence of the external cause; Y99.8 Other external cause status; Z86.73 Personal history of transient ischemic attack (TIA), and cerebral infarction without residual deficits
CPT/HCPCS: 36415; 36600; 71045; 76937; 80048; 80053; 80202; 81003; 82375; 82607; 82805; 82962; 83036; 83605; 83735; 83880; 84145; 84443; 84478; 84484; 85025; 92610; 93005; 93970; 94002; 94003; 95816; 97162; 97166; 97530; 97535; 99291; C1725; C9113; J1630; J1650; J1815; J1953; J2270; J2405; J2543; J2704; J3370; J3480; J3490; J7030; J7050; J7060; U0003-CS